=== PATIENT | female | born 1995 | race Caucasian/White ===

== ENCOUNTER 2017-12-26 21:43 | Outpatient (CLI) | payer OTHER ==
[2017-12-26] MEDS ORDERED: LACTATED RINGER'S 1,000 ML IV (22:22)
[2017-12-26] MEDS ORDERED: OXYTOCIN 30 UNITS/LR 500 ML IV ×3 (22:30)
[2017-12-26] MEDS ORDERED: AMPICILLIN 2 GM/NS (PMX) 100 ML IV (22:30)
[2017-12-26] MEDS ORDERED: LIDOCAINE 1% (MPF) 30 ML INJ INJ (22:30)
[2017-12-26] MEDS ORDERED: IBUPROFEN 600 MG TAB PO (22:30)
[2017-12-26] MEDS ORDERED: MISOPROSTOL 200 MCG TAB PR (22:30)
[2017-12-26] MEDS ORDERED: CARBOPROST 250 MCG INJ IM (22:30)
[2017-12-26] MEDS ORDERED: METHYLERGONOVINE 0.2 MG INJ IM (22:30)
[2017-12-26 22:34] LABS: ADD UMIC YES; UR AMORPHOUS CRYSTAL FEW /HPF (NONE SEEN); UR ASCORBIC ACID NEGATIVE (NEGATIVE); UR BACTERIA FEW /HPF (NONE SEEN); UR BILIRUBIN (Dip) NEGATIVE (NEGATIVE); UR BLOOD (Dip) 2+ mg/dL (NEGATIVE); UR CLARITY CLOUDY (CLEAR); UR COLOR YELLOW (YELLOW); UR GLUCOSE (Dip) NEGATIVE (NEGATIVE); UR KETONES (Dip) TRACE mg/dL (NEGATIVE); UR LEUKOCYTE ESTERASE (Dip) 2+ Leu/ul (NEGATIVE); UR NITRITE (Dip) NEGATIVE (NEGATIVE); UR RBC 60 /HPF (0-5); UR SPECIFIC GRAVITY (Dip) 1.009 (1.003-1.030); UR SQUAMOUS EPITHELIAL CELL FEW /HPF (FEW); UR TOTAL PROTEIN (Dip) 2+ mg/dl (NEGATIVE); UR UROBILINOGEN (Dip) 1+ mg/dL (NEGATIVE); UR WBC 117 /HPF (0-5)
[2017-12-26] MEDS: LACTATED RINGER'S 1,000 ML IV (23:22)
[2017-12-26 23:34] LABS: ADD MAN DIFF? NO
[2017-12-26 23:37] LABS: WHITE BLOOD COUNT 12.6 10^3/ul (4.8-10.8)
[2017-12-26 23:37] LABS: BASOPHILS % 0.3 % (0.0-2.0); EOSINOPHILS # 0.1 10^3/ul (0.0-0.5); EOSINOPHILS % 0.5 % (0.0-7.0); HEMOGLOBIN 11.6 g/dl (12.0-16.0); LYMPHOCYTES # 1.9 10^3/ul (0.8-2.9); LYMPHOCYTES % 14.8 % (15.0-51.0); MEAN CORPUSCULAR HEMOGLOBIN 25.1 pg (29.0-33.0); MEAN CORPUSCULAR HGB CONC 32.2 g/dl (32.0-37.0); MEAN CORPUSCULAR VOLUME 77.8 fl (82.0-101.0); MEAN PLATELET VOLUME 8.6 fl (7.4-10.4); MONOCYTE # 0.9 10^3/ul (0.3-0.9); MONOCYTES % 7.4 % (0.0-11.0); NEUTROPHIL # 9.6 10^3/ul (1.6-7.5); NEUTROPHILS % 76.4 % (39.0-77.0); PLATELET COUNT 381 10^3/UL (140-415); RED BLOOD COUNT 4.63 10^6/ul (4.20-5.40); RED CELL DISTRIBUTION WIDTH 18.7 % (11.5-14.5)
[2017-12-26] MEDS: BUTORPHANOL 2 MG INJ IV (23:43)
[2017-12-26 23:56] LABS: INR 0.93; PROTIME 12.6 Sec (11.9-14.9)
[2017-12-27 00:29] LABS: HEPATITIS B SURFACE ANTIGEN NEGATIVE (NEGATIVE)
[2017-12-27] MEDS ORDERED: AMPICILLIN 1 GM/NS (PMX) 50 ML IV (02:30)
[2017-12-27] MEDS: LACTATED RINGER'S 1,000 ML IV (06:40)
[2017-12-27 15:13] LABS: RAPID PLASMA REAGIN NONREACTIVE (NR)
== END 2017-12-27 16:10 | disposition home or self-care (01) ==
LOC: OBT 21:43 → L-D 21:45 → OBT 22:21 → L-D 22:21
DX: O62.9 Abnormality of forces of labor, unspecified (principal); O99.019 Anemia complicating pregnancy, unspecified trimester; O26.893 Other specified pregnancy related conditions, third trimester; E86.0 Dehydration; Z3A.36 36 weeks gestation of pregnancy
CPT/HCPCS: 36415; 76818; 81001; 85025; 85610; 85730; 86592; 86850; 86900; 86901; 87086; 87340; 96360; 96361; 96374

== ENCOUNTER 2018-01-17 07:45 | Inpatient (IN) | payer OTHER ==
[2018-01-17] MEDS ORDERED: LIDOCAINE 1% (MPF) 30 ML INJ INJ (08:30)
[2018-01-17] MEDS ORDERED: OXYTOCIN 30 UNITS/LR 500 ML IV ×3 (08:30→14:00)
[2018-01-17] MEDS ORDERED: BUTORPHANOL 2 MG INJ IV (08:30)
[2018-01-17] MEDS ORDERED: HYDROCODONE/APAP (5/325) TAB PO (08:30)
[2018-01-17] MEDS ORDERED: MISOPROSTOL 200 MCG TAB PR ×2 (08:30→14:00)
[2018-01-17] MEDS ORDERED: OXYCODONE/ASPIRIN (4.88/325) TAB PO ×3 (08:30→14:00)
[2018-01-17] MEDS ORDERED: CARBOPROST 250 MCG INJ IM ×2 (08:30→14:00)
[2018-01-17] MEDS ORDERED: METHYLERGONOVINE 0.2 MG INJ IM ×2 (08:30→14:00)
[2018-01-17 08:59] LABS: ADD MAN DIFF? NO
[2018-01-17] MEDS: LACTATED RINGER'S 1,000 ML IV ×4 (09:04→12:34)
[2018-01-17 09:07] LABS: WHITE BLOOD COUNT 10.3 10^3/ul (4.8-10.8)
[2018-01-17 09:07] LABS: BASOPHILS % 0.4 % (0.0-2.0); EOSINOPHILS # 0.1 10^3/ul (0.0-0.5); EOSINOPHILS % 0.6 % (0.0-7.0); HEMATOCRIT 33.9 % (37.0-47.0); HEMOGLOBIN 11.2 g/dl (12.0-16.0); LYMPHOCYTES # 1.7 10^3/ul (0.8-2.9); MEAN CORPUSCULAR HEMOGLOBIN 24.7 pg (29.0-33.0); MEAN CORPUSCULAR VOLUME 74.8 fl (82.0-101.0); MEAN PLATELET VOLUME 9.2 fl (7.4-10.4); MONOCYTE # 0.8 10^3/ul (0.3-0.9); MONOCYTES % 7.8 % (0.0-11.0); NEUTROPHIL # 7.7 10^3/ul (1.6-7.5); NEUTROPHILS % 74.7 % (39.0-77.0); PLATELET COUNT 301 10^3/UL (140-415); RED BLOOD COUNT 4.53 10^6/ul (4.20-5.40); RED CELL DISTRIBUTION WIDTH 17.8 % (11.5-14.5)
[2018-01-17 09:24] LABS: INR 0.87; PROTIME 11.9 Sec (11.9-14.9); PT RATIO 0.9
[2018-01-17] MEDS ORDERED: FENTAnyl 2MCG/ML-ROPIV 0.2% 100 ML (09:50)
[2018-01-17] MEDS: OXYTOCIN 30 UNITS/LR 500 ML IV ×2 (12:19→13:44)
[2018-01-17] MEDS ORDERED: LANOLIN 7 GM TUBE TOP (14:00)
[2018-01-17] MEDS ORDERED: ONDANSETRON 4 MG INJ IV (14:00)
[2018-01-17] MEDS: IBUPROFEN 600 MG TAB PO ×3 (14:07→23:57)
[2018-01-17 15:05] LABS: RAPID PLASMA REAGIN NONREACTIVE (NR)
[2018-01-17 15:19] LABS: HEPATITIS B SURFACE ANTIGEN NEGATIVE (NEGATIVE)
[2018-01-17 18:25] LABS: ADD MAN DIFF? NO
[2018-01-17 18:29] LABS: BASOPHILS % 0.2 % (0.0-2.0); EOSINOPHILS % 0.1 % (0.0-7.0); HEMATOCRIT 29.1 % (37.0-47.0); HEMOGLOBIN 9.9 g/dl (12.0-16.0); LYMPHOCYTES # 1.6 10^3/ul (0.8-2.9); LYMPHOCYTES % 11.4 % (15.0-51.0); MEAN CORPUSCULAR HEMOGLOBIN 25.3 pg (29.0-33.0); MEAN CORPUSCULAR VOLUME 74.4 fl (82.0-101.0); MEAN PLATELET VOLUME 9.4 fl (7.4-10.4); MONOCYTE # 1.1 10^3/ul (0.3-0.9); MONOCYTES % 7.8 % (0.0-11.0); NEUTROPHIL # 10.9 10^3/ul (1.6-7.5); NEUTROPHILS % 80.2 % (39.0-77.0); PLATELET COUNT 253 10^3/UL (140-415); RED BLOOD COUNT 3.91 10^6/ul (4.20-5.40); RED CELL DISTRIBUTION WIDTH 17.7 % (11.5-14.5)
[2018-01-17 18:29] LABS: WHITE BLOOD COUNT 13.6 10^3/ul (4.8-10.8)
[2018-01-17] MEDS: BENZOCAINE 20% 56 ML SPRAY TOP (20:44)
[2018-01-17] MEDS: WITCH HAZEL/GLYCERIN PAD PR (20:44)
[2018-01-18] MEDS: IBUPROFEN 600 MG TAB PO ×4 (06:13→23:53)
[2018-01-18 15:07] LABS: ADD MAN DIFF? NO
[2018-01-18 15:10] LABS: BASOPHILS % 0.3 % (0.0-2.0); EOSINOPHILS # 0.1 10^3/ul (0.0-0.5); EOSINOPHILS % 0.8 % (0.0-7.0); HEMATOCRIT 28.5 % (37.0-47.0); HEMOGLOBIN 9.4 g/dl (12.0-16.0); LYMPHOCYTES # 2.2 10^3/ul (0.8-2.9); LYMPHOCYTES % 18.5 % (15.0-51.0); MEAN CORPUSCULAR HEMOGLOBIN 24.6 pg (29.0-33.0); MEAN CORPUSCULAR VOLUME 74.6 fl (82.0-101.0); MEAN PLATELET VOLUME 9.1 fl (7.4-10.4); MONOCYTE # 0.9 10^3/ul (0.3-0.9); MONOCYTES % 7.3 % (0.0-11.0); NEUTROPHIL # 8.7 10^3/ul (1.6-7.5); NEUTROPHILS % 72.7 % (39.0-77.0); PLATELET COUNT 245 10^3/UL (140-415); RED BLOOD COUNT 3.82 10^6/ul (4.20-5.40); RED CELL DISTRIBUTION WIDTH 17.9 % (11.5-14.5)
[2018-01-18] MEDS: FERROUS SULFATE (EC) 325 MG TAB PO (20:47)
[2018-01-19] MEDS: IBUPROFEN 600 MG TAB PO ×2 (05:18→12:00)
[2018-01-19] MEDS: FERROUS SULFATE (EC) 325 MG TAB PO (08:52)
== END 2018-01-19 15:10 | disposition home or self-care (01) | DRG 775 ==
LOC: OBT 07:45 → L-D 07:46 → OBT 08:18 → L-D 08:16 → PP1 16:57
PROVIDERS: Obstetrics & Gynecology
PROC: 10E0XZZ Delivery of Products of Conception, External Approach (ICD-10-PCS; principal; 2018-01-17)
PROC: 0HQ9XZZ Repair Perineum Skin, External Approach (ICD-10-PCS; 2018-01-17)
DX: O70.9 Perineal laceration during delivery, unspecified (principal); Z37.0 Single live birth; Z3A.40 40 weeks gestation of pregnancy
CPT/HCPCS: 62319; 85025; 85610; 85730; 86592; 86850; 86900; 86901; 87340